=== PATIENT | female | born 1950 | race Hispanic/Latino ===

== ENCOUNTER 2017-08-08 18:01 | Emergency (ER) | payer MEDICARE ==
--- NOTE | 2017-08-08 20:09 | Emergency Department Report ---
ED Psych HPI - General Chief Complaint: Psych Stated Complaint: SUICIDAL THOUGHTS Time Seen by Provider: 08/08/17 19:53 Source: EMS, old records reviewed Mode of arrival: Stretcher - History of Present Illness Initial Comments: Patient is 66 years old female sent from [facility] for evaluation of suicidal thoughts. Per [facility] staff patient stated that she wanted to end it all. When I questioned her about this she stated that she does remember she said it'll not. I asked K she is suicidal now he says he can do it now because she is in the hospital. Patient denied any homicidal ideation. No visual or auditory hallucination. MD Complaint: suicidal ideation, feels depressed Associated Psychiatric Symptoms: depression, suicidal ideation Associated Symptoms: denies other symptoms - Related Data Allergies Allergy/AdvReac Type Severity Reaction Status Date / Time No Known Allergies Allergy Unverified 08/08/17 19:36 ED Review of Systems ROS: Stated complaint: SUICIDAL THOUGHTS Other details as noted in HPI Comment: All other systems reviewed and negative Constitutional: denies: chills, fever Respiratory: denies: cough, orthopnea, shortness of breath Cardiovascular: denies: chest pain, palpitations, dyspnea on exertion Gastrointestinal: denies: abdominal pain, nausea, vomiting, diarrhea, constipation, hematemesis Genitourinary: denies: urgency, dysuria, frequency, hematuria, discharge, abnormal menses Musculoskeletal: denies: back pain, joint swelling, arthralgia Neurological: denies: headache, weakness, numbness, paresthesias, confusion, abnormal gait ED Past Medical Hx - Past Medical History Hx Psychiatric Treatment: Yes (depression, bipolar, anxiety, schizoaffective disorder) Additional medical history: dysphagia, catatonic disorder, anemia, glaucoma. - Surgical History Past Surgical History?: No - Social History Smoking Status: Never Smoker Substance Use Type: None ED Physical Exam - General Limitations: No Limitations General appearance: alert, in no apparent distress - Head Head exam: Present: atraumatic, normocephalic, normal inspection - Eye Eye exam: Present: normal appearance, PERRL - ENT ENT exam: Present: normal exam, normal orophraynx, mucous membranes moist - Neck Neck exam: Present: normal inspection, full ROM. Absent: tenderness, meningismus, lymphadenopathy, thyromegaly - Respiratory Respiratory exam: Present: normal lung sounds bilaterally. Absent: respiratory distress, wheezes, rales, rhonchi, stridor, chest wall tenderness, accessory muscle use, decreased breath sounds, prolonged expiratory - Cardiovascular Cardiovascular Exam: Present: regular rate, normal rhythm. Absent: bradycardia , tachycardia, irregular rhythm, normal heart sounds, systolic murmur, diastolic murmur, rubs, gallop - GI/Abdominal GI/Abdominal exam: Present: soft, normal bowel sounds. Absent: distended, tenderness, guarding, rebound, rigid, organomegaly, mass, bruit, pulsatile mass , hernia - Extremities Exam Extremities exam: Present: normal inspection, full ROM, normal capillary refill. Absent: tenderness, pedal edema, joint swelling, calf tenderness - Back Exam Back exam: Present: normal inspection, full ROM. Absent: tenderness, CVA tenderness (R), CVA tenderness (L), muscle spasm, paraspinal tenderness, vertebral tenderness, rash noted - Neurological Exam Neurological exam: Present: alert, oriented X3, CN II-XII intact, normal gait, reflexes normal. Absent: abnormal gait, motor sensory deficit - Psychiatric Psychiatric exam: Present: depressed, flat affect, suicidal ideation. Absent: agitated, anxious, manic, homicidal ideation - Skin Skin exam: Present: warm, intact, normal color ED Course Vital Signs 08/08/17 19:44 Temperature 98.1 F Pulse Rate 72 Respiratory 18 Rate Blood Pressure 154/80 [Left] O2 Sat by Pulse 97 Oximetry Critical care attestation.: If time is entered above; I have spent that time in minutes in the direct care of this critically ill patient, excluding procedure time. ED Disposition Clinical Impression: Suicidal ideation Disposition: [id number]/TX-[id number] PS[facility] HOSP/PSY UNIT Is pt being admited?: No Condition: Stable
[2017-08-08 21:20] LABS: BUN/Creatinine Ratio 32; Blood Urea Nitrogen 19 mg/dL (7-17); Calcium 9.2 mg/dL (8.4-10.2); Hemolysis Index 7
[2017-08-08 21:27] LABS: Basophils # (Auto) 0.1 K/mm3 (0.0-0.1); Basophils % (Auto) 1.2 % (0.0-1.8); Eosinophils # (Auto) 0.5 K/mm3 (0.0-0.4); Eosinophils % (Auto) 5.5 % (0.0-4.3); Hematocrit 43.6 % (30.3-42.9); Hemoglobin 14.9 gm/dl (10.1-14.3); Lymphocytes % (Auto) 21.9 % (13.4-35.0); Mean Corpuscular HGB Conc 34 % (30-34); Mean Corpuscular Hemoglobin 32 pg (28-32); Mean Corpuscular Volume 94 fl (79-97); Monocytes # (Auto) 0.6 K/mm3 (0.0-0.8); Monocytes % (Auto) 6.8 % (0.0-7.3); Platelet Count 359 K/mm3 (140-440); Red Blood Count 4.67 M/mm3 (3.65-5.03); Red Cell Distribution Width 13.5 % (13.2-15.2)
[2017-08-08 21:41] LABS: Amphetamine Screen,Urine PRESUMPTIVE NEGATIVE; Benzodiazepines Screen,Urine PRESUMPTIVE NEGATIVE; Cannabinoid Screen,Urine PRESUMPTIVE NEGATIVE; Cocaine Screen,Urine PRESUMPTIVE NEGATIVE; Methadone Screen,Urine PRESUMPTIVE NEGATIVE; Opiate Screen,Urine PRESUMPTIVE NEGATIVE
[2017-08-08 21:44] LABS: Bilirubin,Urine NEG (Negative); Blood,Urine NEG (Negative); Color,Urine Yellow (Yellow); Protein,Urine <15 mg/dL mg/dL (Negative); Urobilinogen,Urine < 2.0 mg/dL (<2.0); WBC,Urine < 1.0 /HPF (0.0-6.0)
[2017-08-09] MEDS ORDERED: COLACE PO SCH (10:00)
[2017-08-09] MEDS ORDERED: NORVASC PO SCH (10:00)
[2017-08-09] MEDS ORDERED: FERGON PO SCH (10:00)
[2017-08-09] MEDS ORDERED: PAMELOR PO SCH (10:00)
[2017-08-09] MEDS ORDERED: NON-FORMULARY (Dorzolamide 2% (Nf) 1 DROPS) OU SCH (10:00)
[2017-08-09] MEDS ORDERED: VITAMIN D3 PO SCH (10:00)
[2017-08-09] MEDS ORDERED: PEPCID PO SCH (10:00)
[2017-08-09] MEDS ORDERED: VITAMIN B-1 PO SCH (10:00)
[2017-08-09] MEDS ORDERED: THERAGRAN Tab PO SCH (10:00)
--- NOTE | 2017-08-09 12:38 | Consultation ---
History of Present Illness - Reason for Consult Consult date: 08/09/17 Reason for consult: Mental Health Evaluation Requesting physician: APOLONIA YEPEZ - Chief Complaint Chief complaint: "I don't know why I'm here" - History of Present Psychiatric Illness Patient is 66 years old female sent from [facility] for evaluation of suicidal thoughts. Today the patient is calm, but withdrawn during the assessment. She would not confirm or deny being suicidal when asked. She could not tell me if she took medications for depression or bipolar do. She was able to state that she resides at a halfway. Per collateral information from her chart, the patient has a hx of bipolar do. The patient is a poor historian at this time. Medications and Allergies Allergies Allergy/AdvReac Type Severity Reaction Status Date / Time No Known Allergies Allergy Unverified 08/08/17 19:36 Home Medications Medication Instructions Recorded Confirmed Last Taken Type Amlodipine Besylate [Norvasc] 10 mg PO DAILY 08/08/17 08/08/17 08/08/17 History Atorvastatin Calcium [Lipitor] 10 mg PO QHS 08/08/17 08/08/17 08/08/17 History Cholecalciferol (Vitamin D3) 1,000 unit PO DAILY 08/08/17 08/08/17 08/08/17 History [Vitamin D3] Docusate Sodium [Colace] 100 mg PO DAILY 08/08/17 08/08/17 08/08/17 History Dorzolamide 2% (Nf) [Trusopt (Nf)] 1 drops OU BID 08/08/17 08/08/17 Unknown History Famotidine [Pepcid] 20 mg PO DAILY 08/08/17 08/08/17 08/08/17 History Ferrous Gluconate 324 mg PO BID 08/08/17 08/08/17 08/08/17 History Multivitamin [Multiple Vitamins] 1 each PO DAILY 08/08/17 08/08/17 08/08/17 History Nortriptyline [Pamelor] 10 mg PO DAILY 08/08/17 08/08/17 08/08/17 History Thiamine [Vitamin B-1] 100 mg PO QDAY 08/08/17 08/08/17 08/08/17 History Active Meds: Active Medications Amlodipine Besylate (Norvasc) 10 mg PO DAILY [facility] Last Admin: 08/09/17 11:44 Dose: 10 mg Atorvastatin Calcium (Lipitor) 10 mg PO QHS [facility] Cholecalciferol (Vitamin D3) 1,000 unit PO DAILY [facility] Docusate Sodium (Colace) 100 mg PO DAILY [facility] Last Admin: 08/09/17 11:44 Dose: 100 mg Famotidine (Pepcid) 20 mg PO DAILY [facility] Last Admin: 08/09/17 11:44 Dose: 20 mg Ferrous Gluconate (Fergon) 324 mg PO BID [facility] Miscellaneous Medication (Dorzolamide 2% (Nf)) 1 drops OU BID [facility] Multivitamins (Theragran Tab) 1 each PO DAILY [facility] Last Admin: 08/09/17 11:44 Dose: 1 each Nortriptyline HCl (Pamelor) 10 mg PO DAILY [facility] Thiamine HCl (Vitamin B-1) 100 mg PO QDAY [facility] Last Admin: 08/09/17 11:44 Dose: 100 mg Past psychiatric history - Past Medical History Past Medical History: other (Glaucoma, Dysphagia) Past Surgical History: No surgical history - past Psychiatric treatment and history psychiatric treatment history: She cannot confirm or deny a psy hx and fam psy hx. - Social History Social history: other (Reside at a halfway) Mental Status Exam - Vital signs Last Vital Signs Temp 98.1 F 08/08/17 19:44 Pulse 72 08/08/17 19:44 Resp 18 08/08/17 19:44 BP 154/80 08/08/17 19:44 Pulse Ox 97 08/08/17 19:44 - Exam Narrative exam: MSE: Appearance: calm Behavior: poor eye contact Speech: regular rate and tone Mood: withdrawn Affect: congruent to mood Thought Process: unable to assess Thought Content: denies HI's and AVH's, the patient cannot confirm or deny SI's Motor Activity: ambulatory Cognition: A/O x3 Insight: poor Judgment: unable to assess Results Result Diagrams: 08/08/17 20:52 08/08/17 20:52 Abnormal lab results 08/08/17 08/08/17 08/08/17 Range/Units 20:52 20:52 20:52 Hgb 14.9 H (10.1-14.3) gm/dl Hct 43.6 H (30.3-42.9) % Eos % (Auto) 5.5 H (0.0-4.3) % Eos # 0.5 H (0.0-0.4) K/mm3 BUN 19 H (7-17) mg/dL Creatinine 0.6 L (0.7-1.2) mg/dL Glucose 105 H (65-100) mg/dL Salicylates < 0.3 L (2.8-20.0) mg/dL All other labs normal. Assessment and Plan Assessment and plan: Impression: Per the record Hx of Bipolar DO. Today the patient is calm, but withdrawn during the assessment. Recommendation/Plan: Continue 1013 with placement to [facility] today.
[2017-08-09 18:07] VITALS: BP 124/83
== END 2017-08-09 16:40 ==
LOC: ED 18:01 → EEVIPCON 18:01 → ED 08-09 16:40
DX: R45.851 Suicidal ideations (principal); F31.9 Bipolar disorder, unspecified; F25.9 Schizoaffective disorder, unspecified
CPT/HCPCS: 36415; 80048; 80307; 81001; 85025; 99285; G0480; 80320; A9270-GY